=== PATIENT | female | born 1985 | race Caucasian/White ===

== ENCOUNTER 2018-05-13 07:29 | Emergency (ER) | payer SELFPAY | END 2018-05-13 08:27 | disposition home or self-care (01) | LOC: ERS 07:29 | DX: G56.01 Carpal tunnel syndrome, right upper limb (principal); F17.210 Nicotine dependence, cigarettes, uncomplicated | CPT/HCPCS: 99283 ==

== ENCOUNTER 2018-12-17 08:53 | Outpatient (CLI) | payer MEDICAID ==
--- NOTE | 2018-12-17 10:59 | ULT ---
LIMITED OB ULTRASOUND: HISTORY: Evaluate for size and dates. COMPARISON: None. TECHNIQUE: Transabdominal imaging of the gravid uterus is performed. FINDINGS: Single intrauterine gestation with heart tones at a rate of 147 to 153 beats per minute. Posterior placenta. The presence of absence of previa cannot be assessed. BIOMETRY: BPD: 2.12 cm (13 weeks 3 days). HEAD CIRCUMFERENCE: 8.26 cm (13 weeks 4 days). ABDOMINAL CIRCUMFERENCE: 7.33 cm (13 weeks 6 days). FEMUR LENGTH: 1.30 cm (13 weeks 6 days). CROWN-RUMP LENGTH: 7.88 cm (13 weeks 6 days). AVERAGE AGE BY SONOGRAPHY: 13 week 5 days. ESTIMATED DATE OF DELIVERY: 06/19/2019 IMPRESSION: Single intrauterine gestation with heart tones. Average age by sonography is 13 weeks 5 days. Follow-up ultrasound in 18 to 20 weeks is recommended to complete the survey. POS: RAGHAV
== END 2018-12-17 08:54 | disposition home or self-care (01) ==
LOC: SCSULT 08:53
PROVIDERS: ATTEND Nurse Practitioner
DX: O09.91 Supervision of high risk pregnancy, unspecified, first trimester (principal); Z3A.13 13 weeks gestation of pregnancy
CPT/HCPCS: 76815

== ENCOUNTER 2019-02-19 09:10 | Emergency (ER) | payer MEDICAID ==
[2019-02-19] MEDS ORDERED: Acetaminophen 500 MG TAB ONE (09:45)
[2019-02-19 10:02] LABS: Bilirubin Negative (Negative); Blood, Urine Negative (Negative); Clarity CLOUDY (Clear); Glucose, Urine (Dipstick) Negative (Negative); Leukocyte Negative (Negative); Nitrite Negative (Negative); Protein, Urine (Dipstick) 30 mg/dL (Neg-Trace); Specific Gravity, Urine 1.024 (1.002-1.036)
[2019-02-19 10:19] LABS: Bacteria/HPF 1+ HPF (None Seen)
[2019-02-19 10:27] LABS: Hyaline Casts/LPF 0-3 HYALINE CAST LPF (0-3 Hyaline); RBC/HPF 0-3 HPF (0-3)
== END 2019-02-19 10:51 | disposition home or self-care (01) ==
LOC: ERS 09:10
DX: O23.40 Unspecified infection of urinary tract in pregnancy, unspecified trimester (principal); O99.330 Smoking (tobacco) complicating pregnancy, unspecified trimester
CPT/HCPCS: 81003; 81015; 99283

== ENCOUNTER 2019-02-22 08:02 | Day surgery (SDC) | payer MEDICAID, OTHER ==
[2019-02-22 08:51] VITALS: BMI 44.7
== END 2019-02-22 10:10 | disposition home or self-care (01) ==
LOC: L&D/OP 08:02
PROVIDERS: ATTEND Student in an Organized Health Care Education/Training Program
DX: O99.89 Other specified diseases and conditions complicating pregnancy, childbirth and the puerperium (principal); M54.5 Low back pain; O23.40 Unspecified infection of urinary tract in pregnancy, unspecified trimester; Z79.2 Long term (current) use of antibiotics; Z79.899 Other long term (current) drug therapy; Z88.1 Allergy status to other antibiotic agents; Z88.8 Allergy status to other drugs, medicaments and biological substances
CPT/HCPCS: 99282

== ENCOUNTER 2019-03-15 07:59 | Emergency (ER) | payer OTHER | END 2019-03-15 08:38 | disposition home or self-care (01) | LOC: ERS 07:59 | DX: O99.512 Diseases of the respiratory system complicating pregnancy, second trimester (principal); J01.90 Acute sinusitis, unspecified; O99.332 Smoking (tobacco) complicating pregnancy, second trimester; F17.210 Nicotine dependence, cigarettes, uncomplicated; Z71.6 Tobacco abuse counseling; Z3A.26 26 weeks gestation of pregnancy | CPT/HCPCS: 99406 ==

== ENCOUNTER 2019-05-30 05:46 | Inpatient (IN) | payer OTHER ==
[2019-05-30] MEDS ORDERED: Promethazine HCl 25 MG/ML VIAL IM PRN ×3 (06:02→11:20)
[2019-05-30] MEDS ORDERED: hydrALAZINE 20 MG/ML VIAL SLOW IVP PRN ×2 (06:02→11:20)
[2019-05-30] MEDS ORDERED: Ondansetron PF 4 MG/2 ML Vial IVP PRN ×3 (06:02→11:20)
[2019-05-30] MEDS ORDERED: Clindamycin/D5W 900 MG in Premix Bag 1 BAG IVPB SCH (06:15)
[2019-05-30] MEDS ORDERED: Bicitra 30 ML UDCUP PO SCH (06:15)
[2019-05-30] MEDS ORDERED: Gentamicin Sulfate 120 MG in Premix Bag 1 BAG IVPB SCH (06:30)
[2019-05-30 06:32] VITALS: BMI 46.0
[2019-05-30 07:01] LABS: Hemoglobin 11.7 g/dL (12.0-16.0); Mean Corpuscular HGB CONC 33.2 g/dL (32.0-36.0); Mean Corpuscular Hemoglobin 27.4 pg (27.0-31.0); Mean Corpuscular Volume 82.7 fL (78.0-98.0); Mean Platelet Volume 8.8 fL (7.4-10.4); Platelet Count 224 thou/uL (130-400); RBC Distribution Width 12.1 % (11.5-14.5); Red Blood Cell (RBC) Count 4.26 mill/uL (4.20-5.40); White Blood Cell (WBC) Count 13.3 thou/uL (4.8-10.8)
[2019-05-30] MEDS ORDERED: Oxytocin 10 UNITS/ML VIAL ONE (07:05)
[2019-05-30] MEDS ORDERED: Ketorolac Tromethamine 30 MG/ML VIAL ONE (07:05)
[2019-05-30] MEDS ORDERED: MORPHINE 5 MG/10 ML PF VIAL ONE (07:05)
[2019-05-30] MEDS ORDERED: Phenylephrine HCL 10 MG/ML VIAL ONE (07:06)
--- NOTE | 2019-05-30 07:16 | PDOC.LDHP ---
Labor and Delivery H&P Chief complaint: scheduled section HPI: 33yo at 36w6d by LMP c/w first trimester sono here for RCS and RRS due to complete previa and prior CS x 1. Pt has been seen by MFM and no e/o accreta on sono. No complaints, no VB LOF ctx. s/p BMZ x 2 last week Current gestational age (weeks): 36 Due date: 06/21/19 Dating criteria: last menstrual period Grav: 4 Para: 1 Current complications: other (complete previa) Abnormal US findings: Yes (previa) Past Medical History: denies Current medications: pre-lazarus vitamins, iron Previous surgical history: low tranverse CS, other (tonsils) Allergies/Adverse Reactions: Allergies Allergy/AdvReac Type Severity Reaction Status Date / Time ceftriaxone [From Rocephin] Allergy Rash Verified 05/30/19 06:33 divalproex sodium Allergy Verified 05/30/19 06:33 [From Depakote] Social history: tobacco use, drug use (quit smoking recently, now vaping) - Physical Exam Vital signs reviewed and normal: yes General: NAD Heart: RRR Lungs: CTAB Abdomen: gravid Extremeties: no edema FHT: category 1 [place] contractions every: none - OB Labs Blood type: O RH: positive Antibody Screen: negative HIV: negative RPR: negative HEPSAg: negative 1 hour GCT: negative GBS: negative Urine drug screen: positive Rubella: non-immune - Assessment L&D Assessment: scheduled repeat section - Plan Plan: admit to L&D, to OR for section, informed consent obtained, anesthesia consult for pain management -: T&C for previa, UDS for hx of THC use, RRS for permanent sterilization, approved by ethics committee, pt does not desire future childbearing. All questions answered
--- NOTE | 2019-05-30 07:25 | PDOC.OPDEL ---
OB Operative/Delivery Note Delivery Dr/Surgeon: Saira Assist: Alcira Pre-Delivery Diagnosis: scheduled section (placenta previa at 36w) Procedure/Post Delivery Dx: repeat low transverse CS Weeks gestation: 36 Anesthesia: spinal - Findings A Sex: female - 1 min: 8 - 5 min: 9 - Additional Findings/Plan Placenta delivered: spontaneous findings: low transverse hysterotomy without extension, normal uterus, normal tubes, normal ovaries Estimated blood loss: 500 Post delivery plan: routine recovery
[2019-05-30 07:28] LABS: Amphetamine Not Detected (NotDetected); Barbiturates Screen Not Detected (NotDetected); Benzodiazepine Screen Not Detected (NotDetected); Cocaine Metabolite Screen Not Detected (NotDetected); Medtox Control Line Valid? VALID (VALID); Medtox Reader # READER 1; Methadone Not Detected (NotDetected); Methamphetamine Not Detected (NotDetected); Opiate Screen Not Detected (NotDetected); Oxycodone Screen Not Detected (NotDetected); Phencyclidine (PCP) Not Detected (NotDetected); THC/Cannabinoid Screen Not Detected (NotDetected); Tricyclic Screen Not Detected (NotDetected)
[2019-05-30] MEDS: Lactated Ringer's 1,000 ML IV SCH (07:32)
[2019-05-30 07:41] LABS: HBSAg Index 0.38 S/CO (0-0.99); Hep B Surf Ag Non-Reactive S/CO (NonReactive)
[2019-05-30 07:42] LABS: Syphilis Antibody Nonreactive (Nonreactive); Syphilis Antibody Index 0.04 S/CO (<1.00 Non-Reactive)
[2019-05-30] MEDS ORDERED: HYDROmorphone 2 MG/ML VIAL SLOW IVP PRN (08:04)
[2019-05-30] MEDS ORDERED: L&D-Morphine 4 MG/ML VIAL SLOW IVP PRN (08:04)
[2019-05-30] MEDS ORDERED: Ondansetron HCl/PF 4 MG/2 ML Vial IVP PRN (08:04)
[2019-05-30] MEDS ORDERED: Ketorolac Tromethamine 30 MG/ML VIAL IVP PRN (08:04)
[2019-05-30] MEDS ORDERED: Meperidine HCl/PF 25 MG/ML VIAL SLOW IVP PRN (08:04)
[2019-05-30] MEDS ORDERED: Promethazine HCl 25 MG SUPP PR PRN (08:04)
[2019-05-30] MEDS ORDERED: Naloxone HCl 0.4 mg/ml Vial IV PRN (08:04)
[2019-05-30] MEDS ORDERED: diphenhydrAMINE 50 MG/ML VIAL IVP PRN (08:04)
[2019-05-30] MEDS ORDERED: Naloxone HCl 0.4 mg/ml Vial IVP PRN ×2 (08:04)
[2019-05-30] MEDS ORDERED: Ketorolac Tromethamine 30 MG/ML VIAL IVP SCH (08:15)
[2019-05-30] MEDS ORDERED: Communication Order-Pharmacy FS SCH (08:15)
[2019-05-30] MEDS ORDERED: NS / Oxytocin 40 units/1000ml 1,000 ML ONE (09:43)
[2019-05-30] MEDS ORDERED: Acetaminophen 325 MG TAB PO PRN (11:20)
[2019-05-30] MEDS ORDERED: Lanolin Ointment 7 GM TUBE TOP PRN (11:20)
[2019-05-30] MEDS ORDERED: Bisacodyl 10 MG SUPP PR PRN (11:20)
--- NOTE | 2019-05-30 14:06 | OP ---
DATE OF PROCEDURE: 05/30/2019 PREOPERATIVE DIAGNOSES: 1. Intrauterine at 36 weeks and 6 days. 2. Prior x1. 3. Complete posterior placenta previa. 4. Desires permanent sterilization. POSTOPERATIVE DIAGNOSES: 1. Intrauterine at 36 weeks and 6 days. 2. Prior x1. 3. Complete posterior placenta previa. 4. Desires permanent sterilization. PROCEDURES PERFORMED: Repeat low-transverse section via Pfannenstiel skin incision and bilateral salpingectomy. ANESTHESIA: Spinal. GEODETIC COMPUTATOR SURGEON: Sadia Eli MD ESTIMATED BLOOD LOSS: 500 mL. IVF: 1700 mL crystalloid. URINE OUTPUT: 20 mL clear urine. COMPLICATIONS: None. PATHOLOGY: Bilateral fallopian tubes and placenta. FINDINGS: Female , cephalic presentation, clear amniotic fluid. Apgars and weight are pending. Hysterotomy without extension. Uterine tone was good. No active bleeding and normal uterus, ovaries, and tubes bilaterally. DRAINS: Putnam catheter. DESCRIPTION OF PROCEDURE: The patient was taken to operating room, where spinal anesthesia was obtained without difficulty. The patient was prepped and draped in a sterile fashion in a dorsal supine position with a leftward tilt. After ensuring adequacy of anesthesia, a Pfannenstiel skin incision was made and carried down to the underlying subcutaneous tissue with a knife. The fascia was nicked in midline with a knife and carried laterally with the Tobias scissors. The superior aspect of the fascia was tented with two Hien's and dissected off the rectus with the Tobias scissors. Perforating vessel on the right side of the rectus was encountered and this was hemostatic with use of a hemostats and cautery. The inferior aspect of the fascia was tented with two Hien's and dissected off the rectus down to the pubic symphysis. The rectus was bluntly divided in the midline. The peritoneum was incised and manually retracted. The Russel O retractor was placed and the bladder flap was created with the use of Metzenbaums. The hysterotomy was made in a transverse fashion with a knife and the AROM was performed. The infant's head was brought to the hysterotomy and delivered atraumatically with fundal pressure followed by the body. The 's cord was clamped and handed to awaiting Erick team. The was vigorous. The cord blood was obtained and the placenta was allowed to spontaneously deliver. The uterus was exteriorized, cleared of all clots and debris, and hysterotomy was repaired with #1 Monocryl in a running locking fashion. Hemostasis was noted. The hysterotomy was packed with a moist laparotomy sponge and the right fallopian tube was grasped with a Chung clamp. A window was made in the mesosalpinx around the spiral arteries and these arteries were ligated with 2-0 plain gut. The arteries were then incised as well as the medial portion of the fallopian tube after it had been tied off with plain gut and the tube was handed for final pathology. Hemostasis was noted. The same procedure was performed on the contralateral side and hemostasis was noted. Hemostasis was noted on the left side as well. The uterus was then examined and hysterotomy noted to be hemostatic. The several oozers over the bladder flap were cauterized with the Bovie and hemostasis was noted. The uterus was placed back into the abdomen and the pericolic gutters and pelvis were irrigated and suctioned. The Russel O retractor was then removed. The rectus muscles were examined. The perforating vessel that was incised during entry was continuing to ooze and this was hemostatic with a [id number] suture of 2-0 chromic. The fascia was reapproximated with a 0 PDS x2 sutures with excellent reapproximation. The fascia was irrigated and cauterized of any bleeders and reapproximated with a 2-0 plain gut in a running fashion x1 layer. The skin was closed with 4-0 Monocryl in a subcuticular fashion. Dermabond was applied as well as a pressure dressing. The patient tolerated the procedure well. Sponge and needle counts correct x2. The patient was taken to recovery room in stable condition. The patient received gentamicin 120 and clindamycin 900 mg prior to the procedure. Job ID: [id number]
[2019-05-30] MEDS: Ibuprofen 800 MG TAB PO SCH ×2 (15:04→22:51)
[2019-05-30] MEDS ORDERED: HYDROcodone/Acetaminophen 5/325 mg Tablet PO PRN (20:15)
[2019-05-30] MEDS: diphenhydrAMINE 25 MG CAP PO PRN ×2 (20:47→22:51)
[2019-05-30] MEDS: Docusate Calcium (SURFAK) 240 MG CAP PO SCH (20:47)
[2019-05-30] MEDS: Ferrous Sulfate 325 MG TAB PO SCH (21:16)
[2019-05-30] MEDS: HYDROcodone/Acetaminophen 5/325 mg Tablet PO PRN (22:53)
[2019-05-31 05:35] LABS: Hemoglobin 10.5 g/dL (12.0-16.0); Mean Corpuscular HGB CONC 33.4 g/dL (32.0-36.0); Mean Corpuscular Hemoglobin 28.4 pg (27.0-31.0); Mean Corpuscular Volume 85.2 fL (78.0-98.0); Mean Platelet Volume 7.8 fL (7.4-10.4); Platelet Count 233 thou/uL (130-400); RBC Distribution Width 12.1 % (11.5-14.5); White Blood Cell (WBC) Count 11.4 thou/uL (4.8-10.8)
[2019-05-31] MEDS: Ibuprofen 800 MG TAB PO SCH ×3 (06:12→21:11)
[2019-05-31] MEDS ORDERED: Adacel (T-DAP) 0.5 ML SYRINGE IM ONE (09:00)
[2019-05-31] MEDS ORDERED: Measles/Mumps/Rubella 10 MCG/0.5 ML VIAL SC ONE (09:00)
[2019-05-31] MEDS: Ferrous Sulfate 325 MG TAB PO SCH ×2 (09:14→21:12)
[2019-05-31] MEDS: Docusate Calcium (SURFAK) 240 MG CAP PO SCH ×2 (09:15→21:11)
[2019-05-31] MEDS: Prenatal Vitamin 1 TAB PO SCH (09:15)
[2019-05-31] MEDS: HYDROcodone/Acetaminophen 5/325 mg Tablet PO PRN ×2 (12:45→19:08)
[2019-05-31] MEDS: Simethicone Chewable 80 MG TAB PO PRN (21:11)
[2019-06-01] MEDS: Ibuprofen 800 MG TAB PO SCH ×2 (05:43→14:29)
[2019-06-01] MEDS: Simethicone Chewable 80 MG TAB PO PRN (05:43)
[2019-06-01 08:16] VITALS: BP 128/75; TEMP 98.2
--- NOTE | 2019-06-01 08:45 | PDOC.PP ---
Post Progress Note Post Day #: 2 PO intake tolerated: yes Flatus: yes Ambulation: yes Vital Signs (12 hours) Temp Pulse Resp BP Pulse Ox 06/01/19 08:15 98.2 F 92 20 128/75 98 06/01/19 05:36 97.8 F 81 18 125/58 L 06/01/19 00:26 97.8 F 87 18 99/52 L Weight Weight 277 lb - Physical Examination General: NAD Cardiovascular: RRR Respiratory: non-labored breathing Abdominal: no distention, appropriately TTP Skin: CS incision dry & intact, no rash Neurological: no gross focal deficits Psychiatric: normal affect Result Diagrams: 05/31/19 05:10 Additional Labs: Post Labs Blood Type O POSITIVE 05/30/19 06:20 Hep Bs Antigen Non-Reactive S/CO (NonReactive) 05/30/19 06:20 - Assessment/Plan POD2 s/p RCS and bilat salpingectomy VSSAF Hgb 10.5 postop, mild asx anemia due to surgical blood loss, cont PNV on DC. Met all postop milestones Bottlefeeding Rh pos RNI MMR prior to DC DC home fu 2wk
[2019-06-01] MEDS: Ferrous Sulfate 325 MG TAB PO SCH (09:13)
[2019-06-01] MEDS: Docusate Calcium (SURFAK) 240 MG CAP PO SCH (09:13)
[2019-06-01] MEDS: Prenatal Vitamin 1 TAB PO SCH (09:13)
== END 2019-06-01 16:15 | disposition home or self-care (01) | DRG 784 ==
LOC: L&D 05:46 → 3SW 13:22
PROVIDERS: ADMIT Student in an Organized Health Care Education/Training Program; ATTEND Student in an Organized Health Care Education/Training Program
PROC: 10D00Z1 Extraction of Products of Conception, Low, Open Approach (ICD-10-PCS; principal; 2019-05-30)
PROC: 0UT70ZZ Resection of Bilateral Fallopian Tubes, Open Approach (ICD-10-PCS; 2019-05-30)
PROC: 0UT20ZZ Resection of Bilateral Ovaries, Open Approach (ICD-10-PCS; 2019-05-30)
DX: O34.211 Maternal care for low transverse scar from previous cesarean delivery (principal); O44.03 Complete placenta previa NOS or without hemorrhage, third trimester; Z3A.36 36 weeks gestation of pregnancy; Z37.0 Single live birth; Z30.2 Encounter for sterilization; O90.81 Anemia of the puerperium; D50.0 Iron deficiency anemia secondary to blood loss (chronic)
CPT/HCPCS: 36415; 51702; 80306; 85027; 86780; 86850; 86900; 86901; 87340; 88302; 88307; 90707; J1580; J1885; J2274; J2370; J2590; J3490; Q0163

== ENCOUNTER 2023-08-27 12:32 | Emergency (ER) | payer OTHER, SELFPAY ==
[2023-08-27 13:16] LABS: #Basophils 0.1 thou/uL (0.0-0.2); #Eosinphils 0.3 thou/uL (0.0-0.7); #Monocytes 0.4 thou/uL (0.11-0.59); #Neutrophils 4.1 thou/uL (1.40-6.50); %Basophils 0.8 % (0.0-1.0); %Eosinophils 4.5 % (0.0-10.0); %Lymphocytes 19.9 % (21.0-51.0); %Monocytes 6.2 % (0.0-10.0); %Neutrophils 68.3 % (42.0-75.0); Hematocrit 34.4 % (36.0-47.0); Hemoglobin 11.2 g/dL (12.0-16.0); Mean Corpuscular HGB CONC 32.6 g/dL (32.0-36.0); Mean Corpuscular Hemoglobin 26.8 pg (27.0-31.0); Mean Corpuscular Volume 82.3 fl (78.0-98.0); Mean Platelet Volume 10.8 fL (7.4-10.4); Platelet Count 216 10x3/uL (130-400); RBC Distribution Width 13.6 % (11.5-14.5); Red Blood Cell (RBC) Count 4.18 mill/uL (4.20-5.40)
[2023-08-27 13:40] LABS: ALT (SGPT) 12 U/L (8-55); AST (SGOT) 14 U/L (5-34); Albumin 4.2 g/dL (3.5-5.0); Alkaline Phosphatase 57 U/L (40-110); Anion Gap 12 mmol/L (10-20); BUN (Urea Nitrogen) 12 mg/dL (7.0-18.7); Bilirubin, Total 0.3 mg/dL (0.2-1.2); Calc. Creatinine Clearance 0 mL/min (70-130); Calcium 9.1 mg/dL (7.8-10.44); Carbon Dioxide 25 mmol/L (22-29); Chloride 108 mmol/L (98-107); Estimated GFR 82; Globulin 2.1 g/dL (2.4-3.5); Glucose 122 mg/dL (70-105); Lipase 21 U/L (8-78); Potassium 3.8 mmol/L (3.5-5.1); Protein, Total 6.3 g/dL (6.0-8.3); Sodium 141 mmol/L (136-145)
[2023-08-27 13:42] LABS: Troponin I Less than 0.010 ng/mL (< 0.028)
[2023-08-27 13:49] LABS: BHCG - Serum Negative (NEGATIVE); Pregs Control Background? CLEAR/WHITE (CLR/WHITE); Pregs Control Bar Appear? YES (CONTROL BAR)
== END 2023-08-27 14:00 | disposition home or self-care (01) ==
LOC: ERS 12:32
DX: I10 Essential (primary) hypertension (principal); F17.210 Nicotine dependence, cigarettes, uncomplicated
CPT/HCPCS: 36415; 80053; 83690; 83880; 84484; 84703; 85025; 93005

== ENCOUNTER 2024-04-19 10:04 | Emergency (ER) | payer SELFPAY ==
[2024-04-19] MEDS ORDERED: Dexamethasone 10 MG/ML VIAL ONE (12:14)
== END 2024-04-19 12:25 | disposition home or self-care (01) ==
LOC: ERS 10:04
DX: J18.9 Pneumonia, unspecified organism (principal); F17.210 Nicotine dependence, cigarettes, uncomplicated
CPT/HCPCS: 71046; J1100